=== PATIENT | male | born 1955 | race Caucasian/White ===

== ENCOUNTER 2021-06-15 20:26 | Emergency (ER) | payer BC, OTHER ==
[2021-06-15] MEDS ORDERED: diphenhydrAMINE 50 MG/ML SDV IM ONE (20:29)
[2021-06-15] MEDS ORDERED: Famotidine 20 MG Tab PO ONE (20:29)
[2021-06-15] MEDS ORDERED: methylPREDNISolone Sodium Succinate 125 MG/2 ML SDV IM ONE (20:29)
[2021-06-15] MEDS ORDERED: EPINEPHrine 1 MG/ML SDV IM ONE (20:29)
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
[2021-06-15 20:52] VITALS: BP 154/71; PULSE 59
== END 2021-06-15 22:55 | disposition home or self-care (01) ==
LOC: JP.ED 20:26
DX: T63.441A Toxic effect of venom of bees, accidental (unintentional), initial encounter (principal); Z91.030 Bee allergy status
CPT/HCPCS: 96372; 99282; A9270; J0171; J1200; J2930